=== PATIENT | female | born 1950 | race Caucasian/White ===

== ENCOUNTER → 2018-11-08 | Outpatient (CLI) | payer OTHER, BC ==
[~2018-11-08] MED LIST: ACETAMINOPHEN-120 ML PO; CO Q-1010 MG PO; FISHOIL; NOHOMEMEDICATIONS; PERCOCET 5-3251 EACH PO; VALIUM5 MG PO
== END ==
LOC: HYPER 06:35
DX: S81.802A Unspecified open wound, left lower leg, initial encounter (principal); R21 Rash and other nonspecific skin eruption; I73.9 Peripheral vascular disease, unspecified; X58.XXXA Exposure to other specified factors, initial encounter; Y93.89 Activity, other specified; Y92.89 Other specified places as the place of occurrence of the external cause; Y99.8 Other external cause status

== ENCOUNTER → 2018-11-29 | Outpatient (CLI) | payer OTHER, BC | LOC: HYPER 06:58 | DX: R21 Rash and other nonspecific skin eruption (principal) ==

== ENCOUNTER → 2019-07-23 | Outpatient (CLI) | payer OTHER, BC ==
[~2019-07-23] VITALS: Ht 172.7 cm; Wt 70.3 kg
[~2019-07-23] MED LIST changes: +TURMERIC500 M2 PO; +VITAMIN B-121000 MC3 PO; +VITAMIN K240 MCG PO; +ZINC50 MG PO
--- NOTE | 2019-08-01 00:07 | PATH ---
[facility] [address] [place] [address] PATHOLOGY RPT PROCEDURE Name: JONNIEREX Room #: [facility] Fred.#: [id number] Admission: 07/23/19 Date of : 52 Discharge: Report #: [id number] Path Case #: [id number] [facility] Accession Number: [id number] . 01 Material submitted: . stomach - GASTRIC POLYP . 01 Clinical history: . Preop DX: Abnormal CT scan Postop DX: Gastric polyp . 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 - See comment. LBQ 07/30/2019 1557 Local . 02 Comment: Sections show fragments of gastric mucosa with foveolar hyperplasia and an atypical lymphoid infiltrate. The atypical lymphocytes are small to medium sized with predominantly round nuclear contours and condensed nuclear chromatin. Neither a high mitotic rate nor abundant single cell necrosis is seen. Geographic necrosis is not identified. To further characterize the atypical lymphocytes, properly controlled immunohistochemical stains are performed. . Block A1: CD20 - Atypical lymphocytes reactive; CD79a - Atypical lymphocytes reactive; CD3 - Stains admixed T-cells; CD5 - Stains admixed T-cells, no B-cell co-expression; CD43 - Stains T-cells with significant B-cell co-expression; CD10 - Atypical lymphocytes non-reactive, a rare possible residual germinal center; BCL-6 - Atypical lymphocytes non-reactive, rare residual germinal center noted; BCL-2 - Atypical lymphocytes reactive; CD23 - Stains rare residual follicular dendritic cell meshwork; Cyclin D1 - Lacks diffuse nuclear staining; H. pylori - No convincing organisms; MUM-1 - Highlights scattered lamina propria plasma cells; Camilla and lambda in situ hybridization - Lymphocytes appear potentially kappa restricted, plasma cells are polytypic; Ki-67 - Pending. . [facility] [address] [place] [address] PATHOLOGY RPT PROCEDURE Name: REX HARRINGTON Room #: REG [facility]#: [id number] Admission: 07/23/19 Date of : 52 Discharge: Report #: [id number] Path Case #: [id number] Overall, the diagnosis is gastric mucosa with foveolar hyperplasia and an atypical lymphoid infiltrate. 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 Clinical and endoscopic correlation is required. Pl[employer] slides are co-reviewed with Dr. Samir Gastelum. The case will be discussed with Dr. Ronald Gonzales and/or his office on 07/31/19. (CLW/db; 07/30/2019) . 02 Addendum: . An additional properly controlled immunohistochemical stain is performed. . Ki67 (block A1) - proliferative index of 5% in the atypical lymphoid infiltrate. . The final diagnosis remains unchanged. The case is discussed with Ana with Dr. Ronald Gonzales on 07-31-19 at 1:30 PM. (CLW:small engine specialist; 07/30/2019) . Professional services performed by [facility] at [address] [address]. Technical services performed by [facility] at [address] [place] [address], [address] [address]. S/07/31/2019 Addendum Electronically Signed by Mckayla Lombardi MD, Pathologist . 02 Electronically signed: . Mckayla Lombardi MD, Pathologist NPI- [id number] . 01 Gross description: . Received in formalin labeled "Jonnie, Rex, gastric polyp," are five segments of osborn-brown soft tissue measuring 0.5 x 0.4 x 0.2 cm in aggregate dimensions and ranging from 0.1 to 0.3 cm in maximum dimension. The specimen is submitted entirely in cassette A1. The smallest segment may not survive processing. ([facility]; 07/24/2019) XDC/XDC 07/24/2019 1236 Local . 02 Pathologist provided ICD-10: K31.7 . 02 CPT . 119659, I09276, Z45896, R01348, V20284, [id number] Specimen Comment: A courtesy copy of this report has been sent to [phone] Specimen Comment: [id number], Specimen Comment: Report sent to ,DR MORRISSEY / DR FIELDS Performed at: [address] [address] PATHOLOGY RPT PROCEDURE Name: REX HARRINGTON Room #: [facility] VanessaR.#: [id number] Admission: 07/23/19 Date of : 52 Discharge: Report #: [id number] Path Case #: [id number] [address], [place], [place] [id number] MD Reggie Melgar MD Phone: [phone] Performed at: [address] [id number] MD Cruzito Hernandez MD Phone: [phone]
== END | disposition home or self-care (01) ==
LOC: GI 09:36
DX: Z12.11 Encounter for screening for malignant neoplasm of colon (principal); R93.3 Abnormal findings on diagnostic imaging of other parts of digestive tract; K64.8 Other hemorrhoids; K57.30 Diverticulosis of large intestine without perforation or abscess without bleeding; K31.89 Other diseases of stomach and duodenum; K21.9 Gastro-esophageal reflux disease without esophagitis; Z90.49 Acquired absence of other specified parts of digestive tract; Z88.8 Allergy status to other drugs, medicaments and biological substances; Z79.899 Other long term (current) drug therapy; Z98.890 Other specified postprocedural states
CPT/HCPCS: 62110; 62900